=== PATIENT | female | born 1990 | race Caucasian/White ===

== ENCOUNTER 2017-03-16 04:36 | Emergency (ER) | payer MEDICAID ==
[2017-03-16 06:37] VITALS: BP 126/74
== END 2017-03-16 06:37 | disposition home or self-care (01) ==
LOC: ED 04:36
DX: K64.9 Unspecified hemorrhoids (principal)

== ENCOUNTER 2017-04-03 18:44 | Emergency (ER) | payer MEDICAID ==
[2017-04-03 20:17] LABS: BASOPHIL % 0.2 % (0-2); PLATELET COUNT 315 x10^3mcL (130-400)
[2017-04-03 20:43] LABS: RED CELL DISTRIBUTION WIDTH 15.9 % (11.5-14.5)
[2017-04-03 21:41] VITALS: BP 129/85
== END 2017-04-03 21:41 | disposition home or self-care (01) ==
LOC: ED 18:44
PROVIDERS: Emergency Medicine
DX: G89.29 Other chronic pain (principal); K92.1 Melena; D64.9 Anemia, unspecified
CPT/HCPCS: 36415